=== PATIENT | female | born 1990 | race African-American/Black ===

== ENCOUNTER 2018-07-10 01:45 | Inpatient (IN) | payer OTHER ==
[2018-07-10] MEDS: SOD CHLORIDE 0.9% 1,000 ML IV ×3 (05:37→19:52)
[2018-07-10 06:28] LABS: ADD MAN DIFF? NO
[2018-07-10 06:32] LABS: WHITE BLOOD COUNT 10.1 10^3/ul (4.8-10.8)
[2018-07-10 06:32] LABS: ABNORMAL IP MESSAGE 1; BASOPHIL # 0.1 10^3/ul (0.0-0.1); BASOPHILS % 0.6 % (0.0-2.0); EOSINOPHILS # 0.2 10^3/ul (0.0-0.5); EOSINOPHILS % 2.3 % (0.0-7.0); HEMATOCRIT 18.7 % (37.0-47.0); LYMPHOCYTES # 2.5 10^3/ul (0.8-2.9); MEAN CORPUSCULAR HEMOGLOBIN 33.9 pg (29.0-33.0); MEAN CORPUSCULAR HGB CONC 34.2 g/dl (32.0-37.0); MEAN CORPUSCULAR VOLUME 98.9 fl (82.0-101.0); MEAN PLATELET VOLUME 9.5 fl (7.4-10.4); MONOCYTE # 0.7 10^3/ul (0.3-0.9); MONOCYTES % 6.9 % (0.0-11.0); NEUTROPHIL # 6.6 10^3/ul (1.6-7.5); NEUTROPHILS % 64.8 % (39.0-77.0); NUCLEATED RED BLOOD CELLS # 0.6 10^3/ul (0.0-0.0); NUCLEATED RED BLOOD CELLS% 6.2 /100WBC (0.0-0.0); PLATELET COUNT 498 10^3/UL (140-415); RED BLOOD COUNT 1.89 10^6/ul (4.20-5.40); RED CELL DISTRIBUTION WIDTH 20.2 % (11.5-14.5)
[2018-07-10 06:49] LABS: HEMOGLOBIN 6.4 g/dl (12.0-16.0); PATH REVIEW? YES; POSITIVE DIFF @See below
[2018-07-10] MEDS: FENTAnyl 50 MCG/ML VIAL IV ×3 (06:51→20:02)
[2018-07-10] MEDS: KETOROLAC 30 MG INJ IV ×3 (06:51→20:01)
[2018-07-10] MEDS: SOD CHLORIDE 0.9% 0 ML IV (06:52)
[2018-07-10 06:53] LABS: ANION GAP 3 (5-13); BLOOD UREA NITROGEN 5 mg/dl (7-20); CALCIUM 9.1 mg/dl (8.4-10.2); CARBON DIOXIDE 24 mmol/L (21-31); CHLORIDE 113 mmol/L (97-110); CREATININE 0.43 mg/dl (0.44-1.00); Estimated GFR > 60 mL/min (>60); GLUCOSE 92 mg/dl (70-220); POTASSIUM 3.8 mmol/L (3.5-5.1); SODIUM 140 mmol/L (135-144)
[2018-07-10 07:05] LABS: ADD UMIC YES; UR ASCORBIC ACID NEGATIVE (NEGATIVE); UR BACTERIA FEW /HPF (NONE SEEN); UR BILIRUBIN (Dip) NEGATIVE (NEGATIVE); UR BLOOD (Dip) 1+ mg/dL (NEGATIVE); UR CLARITY CLEAR (CLEAR); UR COLOR YELLOW (YELLOW); UR GLUCOSE (Dip) NEGATIVE (NEGATIVE); UR KETONES (Dip) NEGATIVE (NEGATIVE); UR LEUKOCYTE ESTERASE (Dip) NEGATIVE Leu/ul (NEGATIVE); UR MUCUS FEW /HPF (NONE SEEN); UR NITRITE (Dip) NEGATIVE (NEGATIVE); UR RBC 0 /HPF (0-5); UR SPECIFIC GRAVITY (Dip) 1.009 (1.003-1.030); UR TOTAL PROTEIN (Dip) NEGATIVE (NEGATIVE); UR UROBILINOGEN (Dip) NEGATIVE (NEGATIVE); UR WBC 1 /HPF (0-5)
[2018-07-10 07:29] LABS: RETICULOCYTE COUNT # 0.329 X10^6 (0.020-0.110); RETICULOCYTE COUNT % 19.3 % (0.5-1.5)
[2018-07-10 07:29] LABS: RETICULOCYTE RBC 1.71
[2018-07-10] MEDS ORDERED: ONDANSETRON 4 MG INJ IV (07:30)
[2018-07-10] MEDS ORDERED: ACETAMINOPHEN 325 MG TAB PO ×2 (07:30→12:00)
[2018-07-10 07:50] LABS: ALANINE AMINOTRANSFERASE 14 IU/L (13-69); ALBUMIN 3.9 g/dl (3.3-4.9); ALKALINE PHOSPHATASE 34 IU/L (42-121); ASPARTATE AMINO TRANSFERASE 25 IU/L (15-46); BILIRUBIN,INDIRECT 3.5 mg/dl (0-1.1); BILIRUBIN,TOTAL 3.5 mg/dl (0.2-1.3); TOTAL PROTEIN 6.8 g/dl (6.1-8.1)
[2018-07-10 08:01] LABS: ANISOCYTOSIS 2+ (0-0); ELLIPTO 1+ (0-0); EOSINOPHILS % (M) 4 % (0-7); ERYTHROBLAST% (NRBC) (M) 7 % (0-0); GIANT THROMBO% (M) 2 % (0-0); HYPOCHROMASIA 1+ (0-0); LYMPHOCYTES #M 3.2 10^3/ul (0.8-2.9); LYMPHOCYTES % (M) 32 % (15-51); MONOCYTE #M 0.6 10^3/ul (0.3-0.9); MONOCYTES % (M) 6 % (0-11); OVALOCYTES 1+ (0-0); PLATELET ESTIMATE INCREASED; POIKILOCYTOSIS 1+ (0-0); POLYCHROMASIA 3+ (0-0); SEGMENTED NEUTROPHILS (M) % 58 % (39-77); SICKLE CELL 2+ (0-0); TARGET CELLS 1+ (0-0)
[2018-07-10 08:45] LABS: IMMEDIATE SPIN CROSSMATCH 1 2
[2018-07-10] MEDS ORDERED: NACL 0.9% 3 ML SYG IV (12:00)
[2018-07-10] MEDS: HYDROCODONE/APAP (5/325) TAB PO (12:23)
[2018-07-10] MEDS: ENOXAPARIN 40 MG/0.4 ML SYG SC (13:14)
[2018-07-10] MEDS: SOD CHLORIDE 0.9% 500 ML IV (13:21)
[2018-07-10] MEDS: ACETAMINOPHEN 1000MG/100ML IV 100 ML IVPB ×2 (14:40→20:30)
[2018-07-10 14:58] LABS: HEMATOCRIT 19.7 % (37.0-47.0)
[2018-07-10 15:30] LABS: HEMOGLOBIN 6.8 g/dl (12.0-16.0)
[2018-07-10] MEDS: FAMOTIDINE 20 MG TAB PO (20:30)
[2018-07-11] MEDS: SOD CHLORIDE 0.9% 1,000 ML IV ×4 (00:56→18:33)
[2018-07-11] MEDS: FENTAnyl 50 MCG/ML VIAL IV ×8 (01:22→21:45)
[2018-07-11] MEDS: ACETAMINOPHEN 1000MG/100ML IV 100 ML IVPB ×2 (03:13→08:47)
[2018-07-11] MEDS: KETOROLAC 30 MG INJ IV ×3 (03:13→16:38)
[2018-07-11 05:38] LABS: ABNORMAL IP MESSAGE 1; HEMATOCRIT 18.3 % (37.0-47.0); MEAN CORPUSCULAR HEMOGLOBIN 31.3 pg (29.0-33.0); MEAN CORPUSCULAR HGB CONC 34.4 g/dl (32.0-37.0); MEAN PLATELET VOLUME 9.3 fl (7.4-10.4); NUCLEATED RED BLOOD CELLS% 4.6 /100WBC (0.0-0.0); PLATELET COUNT 418 10^3/UL (140-415); RED BLOOD COUNT 2.01 10^6/ul (4.20-5.40); RED CELL DISTRIBUTION WIDTH 24.5 % (11.5-14.5)
[2018-07-11 05:38] LABS: WHITE BLOOD COUNT 7.2 10^3/ul (4.8-10.8)
[2018-07-11 05:52] LABS: ANION GAP 6 (5-13); BLOOD UREA NITROGEN 8 mg/dl (7-20); CALCIUM 8.6 mg/dl (8.4-10.2); CARBON DIOXIDE 23 mmol/L (21-31); CHLORIDE 111 mmol/L (97-110); CREATININE 0.41 mg/dl (0.44-1.00); Estimated GFR > 60 mL/min (>60); GLUCOSE 90 mg/dl (70-220); MAGNESIUM 2.1 mg/dl (1.7-2.5); POTASSIUM 3.5 mmol/L (3.5-5.1); SODIUM 140 mmol/L (135-144)
[2018-07-11 06:47] LABS: HEMOGLOBIN 6.3 g/dl (12.0-16.0); POSITIVE DIFF @See below
[2018-07-11 06:48] LABS: ADD MAN DIFF? YES
[2018-07-11] MEDS: FAMOTIDINE 20 MG TAB PO ×3 (08:41→21:45)
[2018-07-11] MEDS: HYDROXYUREA 500 MG CAP PO (09:00)
[2018-07-11] MEDS: ENOXAPARIN 40 MG/0.4 ML SYG SC (09:19)
[2018-07-11 10:08] LABS: ANISOCYTOSIS 2+ (0-0); BAND NEUTROPHILS % (M) 1 % (0-4); EOSINOPHILS % (M) 3 % (0-7); ERYTHROBLAST% (NRBC) (M) 5 % (0-0); GIANT THROMBO% (M) 1 % (0-0); LYMPHOCYTES #M 2.5 10^3/ul (0.8-2.9); LYMPHOCYTES % (M) 35 % (15-51); MICROCYTOSIS 2+ (0-0); MONOCYTE #M 0.2 10^3/ul (0.3-0.9); MONOCYTES % (M) 3 % (0-11); PLATELET ESTIMATE NORMAL; POIKILOCYTOSIS 2+ (0-0); POLYCHROMASIA 3+ (0-0); SEG NEUT #M 4.2 10^3/ul (1.6-7.5); SEGMENTED NEUTROPHILS (M) % 58 % (39-77); SICKLE CELL 2+ (0-0); SMUDGE%M 4 % (0-0)
[2018-07-12] MEDS: KETOROLAC 30 MG INJ IV ×3 (00:33→19:58)
[2018-07-12] MEDS: FENTAnyl 50 MCG/ML VIAL IV ×4 (00:33→10:21)
[2018-07-12] MEDS: SOD CHLORIDE 0.9% 1,000 ML IV ×4 (00:36→19:58)
[2018-07-12] MEDS: FAMOTIDINE 20 MG TAB PO ×2 (08:29→20:00)
[2018-07-12] MEDS: ENOXAPARIN 40 MG/0.4 ML SYG SC (08:33)
[2018-07-12] MEDS: HYDROXYUREA 500 MG CAP PO (09:45)
[2018-07-12] MEDS: HYDROCODONE/APAP (10/325) TAB PO ×3 (12:33→22:24)
[2018-07-12] MEDS: DIPHENHYDRAMINE 50 MG INJ IV ×2 (14:45→23:25)
[2018-07-12] MEDS: DEFEROXAMINE IV (17:06)
[2018-07-12] MEDS: SOD CHLORIDE 0.9% IV (17:06)
[2018-07-12] MEDS: DOCUSATE SODIUM 100 MG CAP PO (23:40)
[2018-07-13] MEDS: SOD CHLORIDE 0.9% 1,000 ML IV ×3 (02:24→18:20)
[2018-07-13] MEDS: KETOROLAC 30 MG INJ IV ×3 (02:24→16:09)
[2018-07-13] MEDS: HYDROCORTISONE 2.5% 28.35 GM OINT TOP (04:35)
[2018-07-13] MEDS: HYDROCODONE/APAP (10/325) TAB PO ×3 (06:00→23:33)
[2018-07-13 07:02] LABS: ADD MAN DIFF? NO
[2018-07-13 07:06] LABS: ABNORMAL IP MESSAGE 1; BASOPHIL # 0.1 10^3/ul (0.0-0.1); BASOPHILS % 0.9 % (0.0-2.0); EOSINOPHILS # 0.4 10^3/ul (0.0-0.5); EOSINOPHILS % 7.2 % (0.0-7.0); HEMATOCRIT 15.9 % (37.0-47.0); LYMPHOCYTES # 2.7 10^3/ul (0.8-2.9); LYMPHOCYTES % 48.5 % (15.0-51.0); MEAN CORPUSCULAR HEMOGLOBIN 29.7 pg (29.0-33.0); MEAN CORPUSCULAR VOLUME 87.4 fl (82.0-101.0); MEAN PLATELET VOLUME 9.6 fl (7.4-10.4); MONOCYTE # 0.4 10^3/ul (0.3-0.9); NEUTROPHILS % 36.2 % (39.0-77.0); NUCLEATED RED BLOOD CELLS # 0.2 10^3/ul (0.0-0.0); NUCLEATED RED BLOOD CELLS% 3.9 /100WBC (0.0-0.0); PLATELET COUNT 372 10^3/UL (140-415); RED BLOOD COUNT 1.82 10^6/ul (4.20-5.40); RED CELL DISTRIBUTION WIDTH 21.9 % (11.5-14.5)
[2018-07-13 07:06] LABS: WHITE BLOOD COUNT 5.6 10^3/ul (4.8-10.8)
[2018-07-13 07:16] LABS: POSITIVE DIFF @See below
[2018-07-13 07:18] LABS: HEMOGLOBIN 5.4 g/dl (12.0-16.0)
[2018-07-13 07:37] LABS: ALANINE AMINOTRANSFERASE 26 IU/L (13-69); ALBUMIN 3.2 g/dl (3.3-4.9); ALBUMIN/GLOBULIN RATIO 1.18; ALKALINE PHOSPHATASE 39 IU/L (42-121); ANION GAP 5 (5-13); ASPARTATE AMINO TRANSFERASE 33 IU/L (15-46); BILIRUBIN,INDIRECT 1.6 mg/dl (0-1.1); BILIRUBIN,TOTAL 1.6 mg/dl (0.2-1.3); BLOOD UREA NITROGEN 6 mg/dl (7-20); CALCIUM 8.2 mg/dl (8.4-10.2); CARBON DIOXIDE 25 mmol/L (21-31); CHLORIDE 111 mmol/L (97-110); Estimated GFR > 60 mL/min (>60); GLUCOSE 100 mg/dl (70-220); MAGNESIUM 1.8 mg/dl (1.7-2.5); POTASSIUM 3.7 mmol/L (3.5-5.1); SODIUM 141 mmol/L (135-144); TOTAL PROTEIN 5.9 g/dl (6.1-8.1)
[2018-07-13] MEDS: HYDROXYUREA 500 MG CAP PO (08:47)
[2018-07-13] MEDS: FAMOTIDINE 20 MG TAB PO ×2 (08:48→21:13)
[2018-07-13] MEDS: CEPASTAT LOZENGE MT (08:48)
[2018-07-13] MEDS: SOD CHLORIDE 0.9% 250 ML IV* ×2 (11:03→11:05)
[2018-07-13 11:30] LABS: ANISOCYTOSIS 2+ (0-0); BASOPHIL #M 0.1 10^3/ul (0.0-0.0); BASOPHILS % (M) 2 % (0-2); EOSINOPHILS % (M) 6 % (0-7); ERYTHROBLAST% (NRBC) (M) 3 % (0-0); GIANT THROMBO% (M) 3 % (0-0); HYPOCHROMASIA 1+ (0-0); LYMPHOCYTES #M 2.5 10^3/ul (0.8-2.9); LYMPHOCYTES % (M) 46 % (15-51); MICROCYTOSIS 1+ (0-0); MONOCYTE #M 0.2 10^3/ul (0.3-0.9); MONOCYTES % (M) 4 % (0-11); PLATELET ESTIMATE NORMAL; POIKILOCYTOSIS 3+ (0-0); POLYCHROMASIA 3+ (0-0); SEGMENTED NEUTROPHILS (M) % 42 % (39-77); SICKLE CELL 1+ (0-0); SMUDGE%M 10 % (0-0)
[2018-07-13] MEDS: BISACODYL (EC) 5 MG TAB PO (16:10)
[2018-07-13] MEDS: PANTOPRAZOLE (EC) 40 MG TAB PO (16:13)
[2018-07-13] MEDS: SOD CHLORIDE 0.9% IV (18:00)
[2018-07-13] MEDS: DEFEROXAMINE IV (18:00)
[2018-07-13] MEDS: POLYETHYLENE GLYCOL 17 GM PACKET PO (21:00)
[2018-07-13] MEDS: ONDANSETRON 4 MG INJ IV (23:33)
[2018-07-14] MEDS: SOD CHLORIDE 0.9% 1,000 ML IV ×4 (01:02→21:00)
[2018-07-14] MEDS: KETOROLAC 30 MG INJ IV ×3 (02:28→23:13)
[2018-07-14] MEDS: PANTOPRAZOLE (EC) 40 MG TAB PO (06:12)
[2018-07-14 08:26] LABS: WHITE BLOOD COUNT 5.7 10^3/ul (4.8-10.8)
[2018-07-14 08:26] LABS: ABNORMAL IP MESSAGE 1; HEMATOCRIT 17.2 % (37.0-47.0); MEAN CORPUSCULAR HEMOGLOBIN 29.9 pg (29.0-33.0); MEAN CORPUSCULAR HGB CONC 34.9 g/dl (32.0-37.0); MEAN CORPUSCULAR VOLUME 85.6 fl (82.0-101.0); MEAN PLATELET VOLUME 9.5 fl (7.4-10.4); NUCLEATED RED BLOOD CELLS% 3.2 /100WBC (0.0-0.0); PLATELET COUNT 356 10^3/UL (140-415); RED BLOOD COUNT 2.01 10^6/ul (4.20-5.40); RED CELL DISTRIBUTION WIDTH 20.7 % (11.5-14.5)
[2018-07-14 08:37] LABS: ADD MAN DIFF? YES; POSITIVE DIFF @See below
[2018-07-14] MEDS: POLYETHYLENE GLYCOL 17 GM PACKET PO ×2 (08:46→21:19)
[2018-07-14] MEDS: FAMOTIDINE 20 MG TAB PO ×2 (08:46→21:19)
[2018-07-14] MEDS: HYDROXYUREA 500 MG CAP PO (08:49)
[2018-07-14 09:00] LABS: ALANINE AMINOTRANSFERASE 36 IU/L (13-69); ALBUMIN 3.3 g/dl (3.3-4.9); ALBUMIN/GLOBULIN RATIO 1.22; ALKALINE PHOSPHATASE 39 IU/L (42-121); ANION GAP 5 (5-13); ASPARTATE AMINO TRANSFERASE 42 IU/L (15-46); BILIRUBIN,INDIRECT 1.9 mg/dl (0-1.1); BILIRUBIN,TOTAL 1.9 mg/dl (0.2-1.3); BLOOD UREA NITROGEN 9 mg/dl (7-20); CALCIUM 8.8 mg/dl (8.4-10.2); CARBON DIOXIDE 25 mmol/L (21-31); CHLORIDE 112 mmol/L (97-110); CREATININE 0.49 mg/dl (0.44-1.00); Estimated GFR > 60 mL/min (>60); GLUCOSE 80 mg/dl (70-220); SODIUM 142 mmol/L (135-144)
[2018-07-14 09:17] LABS: ANISOCYTOSIS 2+ (0-0); BAND NEUTROPHILS #M 0.1 10^3/ul (0.0-0.6); BAND NEUTROPHILS % (M) 3 % (0-4); BASOPHIL #M 0.2 10^3/ul (0.0-0.0); BASOPHILS % (M) 4 % (0-2); EOSINOPHILS % (M) 5 % (0-7); ERYTHROBLAST% (NRBC) (M) 2 % (0-0); GIANT THROMBO% (M) 2 % (0-0); HYPOCHROMASIA 1+ (0-0); LYMPHOCYTES #M 1.9 10^3/ul (0.8-2.9); LYMPHOCYTES % (M) 35 % (15-51); MICROCYTOSIS 2+ (0-0); MONOCYTE #M 0.2 10^3/ul (0.3-0.9); MONOCYTES % (M) 5 % (0-11); PLATELET ESTIMATE NORMAL; POIKILOCYTOSIS 1+ (0-0); POLYCHROMASIA 3+ (0-0); REACTIVE LYMPHOCYTES% (M) 1 % (0-0); SEG NEUT #M 2.7 10^3/ul (1.6-7.5); SEGMENTED NEUTROPHILS (M) % 47 % (39-77); SMUDGE%M 4 % (0-0)
[2018-07-14] MEDS: BISACODYL (EC) 5 MG TAB PO (19:28)
[2018-07-14] MEDS: HYDROCODONE/APAP (10/325) TAB PO (19:28)
[2018-07-14] MEDS: DOCUSATE SODIUM 100 MG CAP PO (19:28)
[2018-07-14] MEDS: DEFEROXAMINE IV (19:29)
[2018-07-14] MEDS: SOD CHLORIDE 0.9% IV (19:29)
[2018-07-15] MEDS: MAGNESIUM CITRATE 300 ML BTL PO (02:49)
[2018-07-15 05:49] LABS: ADD MAN DIFF? NO
[2018-07-15 05:54] LABS: ABNORMAL IP MESSAGE 1; BASOPHIL # 0.1 10^3/ul (0.0-0.1); BASOPHILS % 1.2 % (0.0-2.0); EOSINOPHILS # 0.3 10^3/ul (0.0-0.5); EOSINOPHILS % 5.5 % (0.0-7.0); HEMATOCRIT 17.8 % (37.0-47.0); LYMPHOCYTES # 2.1 10^3/ul (0.8-2.9); LYMPHOCYTES % 35.9 % (15.0-51.0); MEAN CORPUSCULAR HEMOGLOBIN 29.4 pg (29.0-33.0); MEAN CORPUSCULAR HGB CONC 33.7 g/dl (32.0-37.0); MEAN CORPUSCULAR VOLUME 87.3 fl (82.0-101.0); MEAN PLATELET VOLUME 9.3 fl (7.4-10.4); MONOCYTE # 0.4 10^3/ul (0.3-0.9); MONOCYTES % 6.6 % (0.0-11.0); NEUTROPHIL # 2.9 10^3/ul (1.6-7.5); NEUTROPHILS % 50.5 % (39.0-77.0); NUCLEATED RED BLOOD CELLS # 0.2 10^3/ul (0.0-0.0); PLATELET COUNT 360 10^3/UL (140-415); RED BLOOD COUNT 2.04 10^6/ul (4.20-5.40); RED CELL DISTRIBUTION WIDTH 21.7 % (11.5-14.5)
[2018-07-15 05:54] LABS: WHITE BLOOD COUNT 5.8 10^3/ul (4.8-10.8)
[2018-07-15 06:24] LABS: POSITIVE DIFF @See below
[2018-07-15] MEDS: PANTOPRAZOLE (EC) 40 MG TAB PO (06:34)
[2018-07-15] MEDS: SOD CHLORIDE 0.9% 1,000 ML IV ×4 (06:34→19:36)
[2018-07-15] MEDS: DOCUSATE SODIUM 100 MG CAP PO (08:34)
[2018-07-15] MEDS: FAMOTIDINE 20 MG TAB PO ×2 (08:34→21:20)
[2018-07-15] MEDS: POLYETHYLENE GLYCOL 17 GM PACKET PO ×2 (08:34→21:00)
[2018-07-15] MEDS: HYDROXYUREA 500 MG CAP PO (08:39)
[2018-07-15] MEDS ORDERED: DIPHENHYDRAMINE 50 MG INJ IV (12:00)
[2018-07-15] MEDS ORDERED: NA PHOSPHATE/BIPHOS 133 ML ENEMA PR (12:00)
[2018-07-15] MEDS: SOD CHLORIDE 0.9% 250 ML IV* (13:10)
[2018-07-15] MEDS: KETOROLAC 15 MG INJ IV ×2 (15:36→21:25)
[2018-07-15] MEDS: SOD CHLORIDE 0.9% IV (17:34)
[2018-07-15] MEDS: DEFEROXAMINE IV (17:34)
[2018-07-15] MEDS: CEPASTAT LOZENGE MT (21:24)
[2018-07-15 22:29] LABS: IMMEDIATE SPIN CROSSMATCH 1 2
[2018-07-16 06:53] LABS: ABNORMAL IP MESSAGE 1; HEMATOCRIT 20.5 % (37.0-47.0); MEAN CORPUSCULAR HEMOGLOBIN 29.5 pg (29.0-33.0); MEAN CORPUSCULAR HGB CONC 33.7 g/dl (32.0-37.0); MEAN CORPUSCULAR VOLUME 87.6 fl (82.0-101.0); MEAN PLATELET VOLUME 9.8 fl (7.4-10.4); NUCLEATED RED BLOOD CELLS% 8.3 /100WBC (0.0-0.0); PLATELET COUNT 379 10^3/UL (140-415); RED BLOOD COUNT 2.34 10^6/ul (4.20-5.40); RED CELL DISTRIBUTION WIDTH 21.6 % (11.5-14.5)
[2018-07-16 06:53] LABS: WHITE BLOOD COUNT 6.3 10^3/ul (4.8-10.8)
[2018-07-16] MEDS: PANTOPRAZOLE (EC) 40 MG TAB PO (07:03)
[2018-07-16 07:22] LABS: MAGNESIUM 1.9 mg/dl (1.7-2.5)
[2018-07-16 07:22] LABS: PHOSPHORUS 4.1 mg/dl (2.5-4.9)
[2018-07-16 07:26] LABS: ANION GAP 12 (5-13); BLOOD UREA NITROGEN 5 mg/dl (7-20); CALCIUM 8.7 mg/dl (8.4-10.2); CARBON DIOXIDE 25 mmol/L (21-31); CHLORIDE 107 mmol/L (97-110); CREATININE 0.39 mg/dl (0.44-1.00); Estimated GFR > 60 mL/min (>60); GLUCOSE 86 mg/dl (70-220); POTASSIUM 3.2 mmol/L (3.5-5.1); SODIUM 144 mmol/L (135-144)
[2018-07-16 07:37] LABS: ADD MAN DIFF? YES; HEMOGLOBIN 6.9 g/dl (12.0-16.0); POSITIVE DIFF @See below
[2018-07-16] MEDS: POLYETHYLENE GLYCOL 17 GM PACKET PO ×2 (08:47→20:36)
[2018-07-16] MEDS: FAMOTIDINE 20 MG TAB PO ×2 (09:00→20:33)
[2018-07-16] MEDS: HYDROXYUREA 500 MG CAP PO (09:09)
[2018-07-16] MEDS: SOD CHLORIDE 0.9% 1,000 ML IV (09:23)
[2018-07-16 09:56] LABS: ANISOCYTOSIS 2+ (0-0); BAND NEUTROPHILS #M 0.3 10^3/ul (0.0-0.6); BAND NEUTROPHILS % (M) 5 % (0-4); BASOPHILS % (M) 1 % (0-2); BURR CELLS 1+ (0-0); EOSINOPHILS % (M) 5 % (0-7); ERYTHROBLAST% (NRBC) (M) 9 % (0-0); GIANT THROMBO% (M) 1 % (0-0); HYPOCHROMASIA 1+ (0-0); LYMPHOCYTES #M 2.1 10^3/ul (0.8-2.9); LYMPHOCYTES % (M) 34 % (15-51); MICROCYTOSIS 2+ (0-0); MONOCYTE #M 0.3 10^3/ul (0.3-0.9); MONOCYTES % (M) 5 % (0-11); PLATELET ESTIMATE NORMAL; POIKILOCYTOSIS 1+ (0-0); POLYCHROMASIA 3+ (0-0); REACTIVE LYMPHOCYTES #M 0.1 10^3/ul (0.0-0.0); REACTIVE LYMPHOCYTES% (M) 2 % (0-0); SEG NEUT #M 3.1 10^3/ul (1.6-7.5); SEGMENTED NEUTROPHILS (M) % 49 % (39-77); SICKLE CELL 1+ (0-0); SMUDGE%M 6 % (0-0); TARGET CELLS 1+ (0-0)
[2018-07-16] MEDS: LORAZEPAM 2 MG INJ IV (13:39)
[2018-07-16] MEDS: POTASSIUM CHLORIDE (SR) 20 MEQ TAB PO (13:44)
[2018-07-16] MEDS: FUROSEMIDE 20 MG INJ IV (13:50)
[2018-07-17] MEDS: PANTOPRAZOLE (EC) 40 MG TAB PO (05:06)
[2018-07-17] MEDS: FAMOTIDINE 20 MG TAB PO ×2 (09:00→20:43)
[2018-07-17] MEDS: POLYETHYLENE GLYCOL 17 GM PACKET PO ×2 (09:00→20:42)
[2018-07-17] MEDS: HYDROXYUREA 500 MG CAP PO (09:47)
[2018-07-17] MEDS: DEFEROXAMINE IV (12:50)
[2018-07-17] MEDS: SOD CHLORIDE 0.9% IV (12:50)
== END 2018-07-17 23:55 | disposition home health service (06) | DRG 812 ==
LOC: MS1 07-17 04:30 → E/R 01:45 → TEL 07-12 22:02 → 2NE 07:21 → ICU 19:00
PROC: 30233N1 Transfusion of Nonautologous Red Blood Cells into Peripheral Vein, Percutaneous Approach (ICD-10-PCS; principal; 2018-07-10)
DX: D57.00 Hb-SS disease with crisis, unspecified (principal); E83.19 Other disorders of iron metabolism; K59.03 Drug induced constipation; T40.2X5A Adverse effect of other opioids, initial encounter
CPT/HCPCS: 36430; 71045; 74018; 80048; 80053; 80076; 81001; 82728; 83735; 84100; 84703; 85014; 85018; 85025; 85045; 86850; 86900; 86901; 86920; 87081; 93970; 96374; 96375; 99285-25